=== PATIENT | female | born 1950 | race African-American/Black ===

== ENCOUNTER → 2021-07-24 | Outpatient (CLI) | payer OTHER ==
[~2021-07-24] MED LIST: ALBUTEROL0.63 MG/3 INH; AMLODIPINE BESY10 MG PO; ATORVASTATIN CA10 MG PO; CALCIUM500 MG PO; FISH OIL 1,0001 EAC9 PO; HYDROCODONE-ACE15 ML PO; MULTI VITAMIN1 EACH PO; PROAIR HFA8.5 GM INH; SINGULAIR 10 MG10 M1 PO; VITAMIN A2400 MCG PO; VITAMIN B-121000 MC2 SUBLING; VITAMIN C500 M1 PO; VITAMIN D350 MC3 PO
[2021-07-24 13:06] LABS: ABSOLUTE NEUTROPHILS 6.5 thou/uL (1.4-8.2); BASOPHILS 0.9 % (0.0-2.0); EOSINOPHILS 0.9 % (0.0-3.0); HEMATOCRIT 39.4 % (37.0-47.0); HEMOGLOBIN 12.9 gm/dL (12.0-15.0); LYMPHOCYTES 16.9 % (24.0-44.0); MCH 30.1 pg (26.0-34.0); MCHC 32.8 g/dL (28.0-37.0); MCV 91.6 fL (80.0-100.0); MONOCYTES 6.2 % (1.0-8.0); PLATELET COUNT 313 thou/uL (150-400); POLYS 75.1 % (36.0-66.0); RBC 4.31 mil/uL (4.20-5.00); RDW 15.6 % (10.5-14.5); WBC 8.7 thou/uL (4.0-11.0)
[2021-07-24 13:49] LABS: ALBUMIN 3.4 g/dL (3.4-5.0); CALCIUM 9.3 mg/dL (8.5-10.1); CREATININE 1.1 mg/dL (0.6-1.0); POTASSIUM 4.4 mmol/L (3.5-5.1); TOTAL BILIRUBIN 0.4 mg/dL (0.2-1.0); TOTAL PROTEIN 7.8 g/dL (6.4-8.2)
[2021-07-25 02:06] LABS: GLYCOHEMOGLOBIN (HGB A1C) 5.5 % (4.8-5.6)
== END ==
LOC: LAB 12:03
PROVIDERS: ATTEND Surgery
DX: Z01.812 Encounter for preprocedural laboratory examination (principal); K44.9 Diaphragmatic hernia without obstruction or gangrene; E55.9 Vitamin D deficiency, unspecified; Z79.899 Other long term (current) drug therapy

== ENCOUNTER 2021-07-30 09:38 | Observation (INO) | payer OTHER ==
[~2021-07-30] VITALS: Ht 152.4 cm; Wt 109.1 kg
[~2021-07-30 09:38] MED LIST changes: -HYDROCODONE-ACE15 ML PO
[2021-07-30 11:42] VITALS: BP 125/53
--- NOTE | 2021-07-30 17:43 | NUR ---
ADMITTED TO 4S VIA BED AFTER LAP SLEEVE GASTRECTOMY. HAS 5 ABD LAP SITES WITH DERMABOND. A/O X 4. 2 L O2 VIA NASAL CANNULA. LEFT AC IV WITH LR INFUSING @ 126 MLS/HR. NPO PER BARIATRIC PROTOCAL. BILATERAL TEDS AND SCDS. PUREWICK PLACED. ABD PAIN 7/10 MORPHINE GIVEN FOR PAIN. HAS SCOPE PATCH BEHIND RIGHT EAR. NO NAUSEA NOTED.
[2021-07-30 20:39] VITALS: BP 147/75
--- NOTE | 2021-07-31 01:13 | NUR ---
PT ASSESSED AT START OF SHIFT. NPO STATUS MAINTAINED. IV INTACT AND FLUIDS INFUSING. FALL PREC IN PLACE. ON 2L OF O2. PT HAD AN INCONTINENT FROM EXT CATH. PERICARE GIVEN. PT UP X1 TO THE BATHROOM. CALL LIGHT AT REACH AND PAIN MEDICATION GIVEN. WILL CONT TO MONITOR.
[2021-07-31 08:18] VITALS: BP 151/74
[2021-07-31 08:33] LABS: ABSOLUTE NEUTROPHILS 10.3 thou/uL (1.4-8.2); BASOPHILS 0.2 % (0.0-2.0); HEMATOCRIT 37.3 % (37.0-47.0); HEMOGLOBIN 11.9 gm/dL (12.0-15.0); LYMPHOCYTES 6.7 % (24.0-44.0); MCH 29.4 pg (26.0-34.0); MCV 91.9 fL (80.0-100.0); MONOCYTES 4.9 % (1.0-8.0); PLATELET COUNT 287 thou/uL (150-400); POLYS 88.2 % (36.0-66.0); RBC 4.06 mil/uL (4.20-5.00); RDW 15.9 % (10.5-14.5); WBC 11.7 thou/uL (4.0-11.0)
[2021-07-31 09:07] LABS: CALCIUM 8.8 mg/dL (8.5-10.1); CREATININE 1.2 mg/dL (0.6-1.0); POTASSIUM 4.4 mmol/L (3.5-5.1)
--- NOTE | 2021-07-31 11:17 | NUR ---
Pt up in bed, call light with in reach, pleasant, no pain at this time, educated pt on use of IS, pt demo understanding of the IS.
[2021-07-31 12:22] VITALS: BP 185/90
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
[2021-07-31] MEDS ORDERED: HYDROCODONE-ACE15 ML PO (13:42)
[2021-07-31 14:17] VITALS: BP 185/90
--- NOTE | 2021-07-31 16:09 | NUR ---
pt up in wc personal clothes on, personal belonging in place, discharge orders educted, pt has print out, friend at side to drive pt home. No concerns at this time.
--- NOTE | 2021-08-01 12:35 | O ---
[facility] [place] [address] OPERATIVE REPORT Name: TOMI SOTO Room #: 434-P [facility] Anam Butcher#: [id number] Admission: 07/30/21 Attend Phys: Everardo Aj MD Discharge: 07/31/21 Date of : 50 Report #: [id number] THIS REPORT FOR: cc: REMEDIOS PADILLA [employer] - No family physician/PCP Everardo Aj MD ~ DATE OF SERVICE: 07/30/2021 PREOPERATIVE DIAGNOSES: 1. Class 3 obesity. 2. Hypertension. 3. Hyperlipidemia. 4. Gastroesophageal reflux disease. POSTOPERATIVE DIAGNOSES: 1. Class 3 obesity. 2. Hypertension. 3. Hyperlipidemia. 4. Gastroesophageal reflux disease. OPERATIVE PROCEDURE DONE: Laparoscopic vertical sleeve gastrectomy. OPERATING SURGEON: Everardo Aj MD INDICATIONS FOR THE PROCEDURE: The patient is a 70-year-old female who presented with features of class 3 obesity. She was noted to have a weight of 110 kilograms with a BMI of 46 with the above listed comorbidities. The patient was advised laparoscopic vertical sleeve gastrectomy and possible hiatal hernia repair. The patient showed understanding and agreed to proceed. PROCEDURE IN DETAIL: After explaining to the patient in detail and informed consent was obtained, the patient was identified in the preoperative holding area, the patient was transferred to the operating room and was placed in supine position. Sequential compression devices were placed for DVT prophylaxis. Preoperative antibiotics were given. After induction of anesthesia, the abdomen was prepped and draped in a sterile fashion. Through a left upper quadrant 1 cm incision and using Optiview technique, peritoneal cavity was entered and pneumoperitoneum was created. So thereafter under direct vision, another 5 mm trocar was placed in the left mid abdomen and another 12 mm trocar was placed in the right mid abdomen. Another 5 mm trocar was placed in the right subcostal region and through a 1 cm incision in the epigastrium, a Dandre retractor was introduced and the left lobe of the liver was retracted. On initial inspection, the patient was noted to have few adhesions in the right upper quadrant. I had to take down few adhesions to facilitate placement of the ports initially. I started to take down the gastroepiploic vessels using EnSeal, so this was continued superiorly. The short gastric vessels were taken down. The [address] [address] OPERATIVE REPORT Name: TOMI Room #: 434-P [facility] Anam MLeann#: [id number] Admission: 07/30/21 Attend Phys: Evreardo Aj MD Discharge: 07/31/21 Date of : 50 Report #: [id number] gastrophrenic ligament was divided and the angle of His was mobilized. Distally, the gastroepiploic vessels were taken down up to about 4 cm proximal to the pylorus. At this point, a 36-Surinamese ViSiGi tube was inserted into the stomach. This was placed along the lesser curve of the stomach. The stomach was then divided in a vertical fashion with multiple Endo-ZIA [place] staplers, 2 green loads and multiple gold loads were used to divide the stomach in a vertical fashion to create a loose sleeve around the 36-Surinamese bougie and air leak test was performed. Air leak test was performed by insufflation of the stomach and by irrigation of fluid along the staple line. There was no leak that was noted. Absolute hemostasis was ensured. Thorough saline irrigation was given. The orogastric tube was removed. The sleeve gastrectomy specimen was removed. The 12 mm port site incision was closed with 0 Vicryl for the fascia, skin was closed with 4-0 Monocryl for all the incisions. Dermabond was applied. The patient was stable at the end of the procedure. The patient was awoken from anesthesia and was transferred to the recovery room in stable condition. ESTIMATED BLOOD LOSS: Minimal. CONDITION: The patient is stable. FLUIDS GIVEN: Per anesthesia notes. SPECIMEN SENT: Sleeve gastrectomy specimen. COMPLICATIONS: None. ANESTHESIA: General anesthesia. <ELECTRONICALLY SIGNED> By: Everardo Aj MD 08/01/21 1235 [id number] [id number] Everardo Aj MD /nt
--- NOTE | 2021-08-04 12:07 | PATH ---
[facility] [address] [place] [address] PATHOLOGY RPT PROCEDURE Name: YAMINI SOTO Room #: 434-P [facility] Anam Butcher#: [id number] Admission: 07/30/21 Date of : 50 Discharge: 07/31/21 Report #: [id number] Path Case #: [id number] [facility] Accession Number: [id number] . 01 Material submitted: . stomach - PARTIAL GASTRECTOMY . 01 Clinical history: . LAPAROSCOPIC SLEEVE GASTRECTOMY MORBID OBESITY . 02 Diagnosis: Stomach, partial gastrectomy: - No significant diagnostic abnormalities present. (IUV:pit; 08/03/2021) [facility] 08/03/2021 1215 Local . 02 Electronically signed: . Henrietta Rico MD, Pathologist NPI- [id number] . 01 Gross description: . Received in formalin labeled "Yamini Soto partial gastrectomy" is an unoriented partial gastrectomy specimen measuring 16.2 x 3.9 x 2.6 cm with a staple line measuring 18.7 cm in length. The serosal surface is smooth, chatterjee-pink and glistening. The specimen is opened to reveal chatterjee-pink mucosa with unremarkable foldings with multiple scattered polyps ranging from 0.2-0.4 cm in greatest dimension and without ulcerations. Dba Manager sections of the specimen are submitted in cassette A1-A3.([facility]; 07/31/2021) GZA/GZA 07/31/2021 1058 Local . 02 Pathologist provided ICD-10: E66.01 . 02 CPT . 631594 Specimen Comment: A courtesy copy of this report has been sent to [phone] Specimen Comment: Report sent to Specimen Comment: A duplicate report has been generated due to demographic updates. Performed at: [address] [id number] MD Saúl Juárez MD Phone: [phone] Performed at: [address] [id number] [address] [address] PATHOLOGY RPT PROCEDURE Name: YAMINI M Room #: 434-P [facility] Anam MLeann#: [id number] Admission: 07/30/21 Date of : 50 Discharge: 07/31/21 Report #: [id number] Path Case #: [id number] MD Henrietta Rico MD Phone: [phone]
== END 2021-07-31 16:07 | disposition home or self-care (01) ==
LOC: OR → EDSTATUS 09:38 → ADMC 09:51 → 4S 09:51 → PRE 10:11 → OR 12:06 → PRE 14:44 → OR 15:18 → PRE 15:28 → 4S 16:30
PROVIDERS: ADMIT Surgery; ATTEND Surgery
DX: E66.01 Morbid (severe) obesity due to excess calories (principal); K21.9 Gastro-esophageal reflux disease without esophagitis; Z20.822 Contact with and (suspected) exposure to COVID-19; I10 Essential (primary) hypertension; E78.5 Hyperlipidemia, unspecified; Z68.43 Body mass index [BMI] 50.0-59.9, adult; Z79.899 Other long term (current) drug therapy
CPT/HCPCS: 50010; 50101; 50222; 50386; 50555; 51489; 52265; 52266; 53307; 54022; 54118; 56462; 56525; 56526; 57092; 58574; 58587; 58588; 58869; 58911; 62110; 62900; 70005